=== PATIENT | female | born 1990 | race Caucasian/White ===

== ENCOUNTER 2024-05-28 20:11 | Emergency (ER) | payer SELFPAY ==
[2024-05-28 20:22] VITALS: BP 112/75
[2024-05-28 21:00] VITALS: BP 116/69
--- NOTE | 2024-05-28 21:26 | ED.GENMED ---
History of Present Illness
General
Chief Complaint: Psychiatric Problem
Source: patient and family
Exam Limitations: non verbal-adult
Time Seen by Provider: 05/28/24 20:25
Nursing documentation reviewed up to this point in time: agreed with
History of Present Illness
History of Present Illness:
34-year-old female with past medical history of mental illness reported from the mother presenting to the emergency department after being found not wearing a top by police and brought into the ER for assessment. She provide no additional
complaints no visible signs of significant trauma the mother claims that this is her baseline.
Review of Systems
Review of Systems
Allergies reviewed?: Yes
All Other Systems: ROS reviewed and negative except as documented in HPI and ROS
Phy Exam
Physical Exam
Physical Exam:
GENERAL: Alert , in no apparent distress
EYE: pupils equal and reactive
NECK: Supple, no significant adenopathy.
ENT: o/p clr, mmm.
CARDIAC: Regular rate and rhythm .
LUNGS: Clear breath sounds bilaterally, no acute respiratory distress, no wheezes/rales/rhonchi
ABDOMEN: Soft, without focal tenderness, no r/g, no cvat
NEUROLOGICAL: Alert no focal neuro deficits walking with steady gait
SKIN: Warm and dry, skin intact.
MUSCULOSKELETAL: No edema, well perfused.
Course
Vital Signs
Initial and Last Documented VS:
Initial Vital Signs
Temp Pulse Resp BP Pulse Ox
98.1 F 94 20 112/75 98
05/28/24 20:22 05/28/24 20:22 05/28/24 20:22 05/28/24 20:22 05/28/24 20:22
Last Documented Vital Signs
Temp Pulse Resp BP Pulse Ox
98.1 F 94 20 116/69 98
05/28/24 20:22 05/28/24 20:22 05/28/24 20:22 05/28/24 21:00 05/28/24 21:15
MDM/Problems Addressed
MDM/Problems Addressed:
34-year-old female presenting to the emergency department after being brought in by police with concerns that she was walking near her home without a top on. She apparently is nonverbal at baseline due to significant mental illness. She offers no
additional complaints at this time no signs of significant trauma was evaluated from head to toe. Patient was ambulated with steady gait and was sent home with her mother.
*Critical Care Note
Total Time (30-74mins, 75-104mins- exclusive of procedures): Not Applicable
ED Attending Note
-
Portions of this chart may have been created with voice recognition software.� Occasional wrong word or��sound alike� substitutions may have occurred due to the inherent limitations of voice recognition software.
Discharge Plan
Departure
Patient Disposition: Home (Routine Discharge)
Date of Disposition: 05/28/24
Time of Disposition: 21:26
Patient with high blood pressure during this ER visit?: No
Condition: Good
Covid-19: Not Applicable
Discharge Problem:
Encounter for medical screening examination
Activity Restrictions/Additional Instructions:
Myrna came to the emergency department today with concerns from police. Here she had a reassuring medical exam. Return for any worsening, new or concerning symptoms.
Interventions
Interventions:
*Risk Screen - Suicide Last Done: 05/28/24 21:32
*General Assessment Last Done: 05/28/24 20:35
*Neglect/Abuse Screening Last Done: 05/28/24 20:35
ED- Fall Risk Assessment Last Done: 05/28/24 20:31
*ED COVID-19 Vaccine History Last Done: 05/28/24 20:35
*Nursing Disposition Last Done: 05/28/24 21:32
ED-Psychological Assessment Last Done: 05/28/24 20:31
Discharge Date and Time
Discharge Date/Time: 05/28/24 21:50
Print Language: [place]
== END 2024-05-28 21:50 | disposition home or self-care (01) ==
LOC: EMR 20:11
PROVIDERS: EMERGENCY PHYSICIAN Emergency Medicine
DX: Z00.00 Encounter for general adult medical examination without abnormal findings (principal); Z65.3 Problems related to other legal circumstances
CPT/HCPCS: 99282